=== PATIENT | male | born 1955 | race African-American/Black ===

== ENCOUNTER 2023-10-29 17:36 | Inpatient (IN) | payer MEDICARE, MEDICAID ==
[~2023-10-29] VITALS: Ht 177.8 cm; Wt 84.4 kg
[2023-10-29] MEDS ORDERED: FENTANYL 2500MCG/250ML PMX 250 ML IV ONE (18:15)
[2023-10-29 18:20] VITALS: PULSE 136; RESP 26
[2023-10-29] MEDS: SUCCINYLCHOLINE CHLORIDE 200MG/10ML IV ONE (18:20)
[2023-10-29] MEDS: ETOMIDATE 2MG/ML 10ML VIAL IV ONE (18:20)
[2023-10-29] MEDS ORDERED: ALBUTEROL (0.083%) 2.5MG/3ML NEB HHN ONE (18:30)
[2023-10-29] MEDS: METHYLPREDNISOLONE SOD SUCC 125MG/2ML (ACT-O-VIAL) IV ONE (18:30)
[2023-10-29] MEDS: VANCOMYCIN 1G PREMIX 200 ML IV ONE (18:30)
[2023-10-29] MEDS: PIPERACILLIN/TAZO 3.375G/50ML 50 ML IV ONE (18:30)
[2023-10-29] MEDS ORDERED: IPRATROPIUM/ALBUTEROL 0.5-3(2.5)MG/3ML NEB HHN ONE (18:30)
[2023-10-29] MEDS: PROPOFOL 10MG/ML 100ML 100 ML IV SCH (18:38)
[2023-10-29 19:19] LABS: BG BASE EXCESS -0.5 mmol/L (-2.0-2.0); BG CARBOXYHEMOGLOBIN 0.1 % (0.5-1.5); BG DEOXYHEMOGLOBIN 1.7 % (0.0-5.0); BG FRACTION INSPIRED OXYGEN 100; BG HCO3 ACT 26.3 mmol/L (22.0-26.0); BG METHEMOGLOBIN 0.5 % (0.0-1.5); BG OXYGEN SATURATION 98.3 % (92.0-98.5); BG OXYHEMOGLOBIN 97.7 % (94.0-97.0); BG PCO2 51.6 mmHg (35.0-45.0); BG PH 7.325 (7.350-7.450); BG PO2 123.1 mmHg (75.0-100.0); BG SAMPLE SITE RIGHT RADIAL; BG TOTAL HEMOGLOBIN 14.3 g/dL (12.0-18.0); BG VENT MODE VENT - AC
[2023-10-29 20:02] VITALS: PULSE 157; RESP 26
[2023-10-29] MEDS: SODIUM CHLORIDE 0.9% 1000ML BAG (SEPSIS BOLUS) IV ONE (20:29)
[2023-10-29] MEDS: MIDAZOLAM HCL 2 MG/2 ML VIAL IV ONE (21:12)
[2023-10-29 23:04] LABS: HEMATOCRIT. 36.6 % (42.0-52.0); MEAN CORPUSCULAR HEMOGLOBIN 30.8 pg (28.0-32.0); MEAN CORPUSCULAR HGB CONC 32.7 g/dL (31.0-37.0); MEAN CORPUSCULAR VOLUME 94.1 fL (80.0-94.0); MEAN PLATELET VOLUME 7.4 fl (7.4-10.4); PLATELET 181 x1000/uL (130-400); RED BLOOD CELL COUNT 3.89 mill/uL (4.7-6.1); RED CELL DISTRIBUTION WIDTH 13.3 % (11.6-14.6); WHITE BLOOD COUNT 7.7 x1000/uL (4.5-11.0)
[2023-10-29 23:05] LABS: DIFFERENTIAL COMMENT 1
[2023-10-29 23:12] LABS: INR 1.2
[2023-10-29] MEDS ORDERED: IPRATROPIUM/ALBUTEROL 0.5-3(2.5)MG/3ML NEB HHN NR (23:15)
[2023-10-29] MEDS ORDERED: ETOMIDATE 2MG/ML 10ML VIAL IV NR (23:15)
[2023-10-29] MEDS ORDERED: ALBUTEROL (0.083%) 2.5MG/3ML NEB HHN NR (23:15)
[2023-10-29] MEDS ORDERED: SUCCINYLCHOLINE CHLORIDE 200MG/10ML IV NR (23:15)
[2023-10-29] MEDS ORDERED: FENTANYL CITRATE/PF 2,500 MCG in SODIUM CHLORIDE 0.9% 200 ML IV ONE (23:15)
[2023-10-29 23:22] LABS: PLATELET ESTIMATE NORMAL
[2023-10-29 23:25] VITALS: PULSE 115; RESP 24
[2023-10-29 23:28] LABS: LACTIC ACID 2.3 mmol/L (0.4-2.0)
[2023-10-29] MEDS ORDERED: VANCOMYCIN 1G PREMIX 200 ML IV NR (23:30)
[2023-10-29 23:32] LABS: ALANINE AMINOTRANSFERASE 13 IU/L (10-49); ALBUMIN 3.5 g/dL (3.2-4.8); ASPARTATE AMINOTRANSFERASE 27 IU/L (<34); BILIRUBIN TOTAL 0.3 mg/dL (0.1-1.0); CALCIUM 8.2 mg/dL (8.7-10.4); CARBON DIOXIDE 29 mEq/L (21-32); CHLORIDE 107 mEq/L (98-107); GLUCOSE 106 mg/dL (70-105); POTASSIUM 3.4 mEq/L (3.5-5.1); PROTEIN TOTAL 7.1 g/dL (6.0-8.3); SODIUM 141 mEq/L (136-145); UREA NITROGEN BLOOD 31 mg/dL (9-23)
[2023-10-29 23:45] LABS: TROPONIN I HIGH SENSITIVITY 158 ng/L (3.0-53)
[2023-10-30] VITALS (73 sets, daily range): BP systolic 69–148; BP diastolic 50–87; PULSE 73–108; RESP 21–26; TEMP 98.8–100.4
[2023-10-30 00:40] LABS: HEPATITIS A AB IGM NEGATIVE (Negative); HEPATITIS B CORE AB IGM NEGATIVE (Negative); HEPATITIS B SURFACE ANTIGEN NEGATIVE (Negative); HEPATITIS C AB NON REACTIVE (Neg) (Negative)
[2023-10-30] MEDS ORDERED: GUAIFENESIN 200MG/10ML SUGAR FREE UDC PO PRN (01:30)
[2023-10-30] MEDS ORDERED: CLONIDINE 0.1MG TABLET PO PRN (01:30)
[2023-10-30] MEDS: SODIUM CHLORIDE 0.9% 1,000 ML IV SCH (01:30)
[2023-10-30] MEDS ORDERED: DOCUSATE SODIUM 100MG CAPSULE PO PRN (01:30)
[2023-10-30] MEDS ORDERED: ONDANSETRON HCL 4MG/2ML INJ IV PRN (01:30)
[2023-10-30] MEDS ORDERED: ACETAMINOPHEN 325MG TABLET PO PRN (01:30)
[2023-10-30] MEDS ORDERED: IPRATROPIUM/ALBUTEROL 0.5-3(2.5)MG/3ML NEB HHN PRN (01:30)
[2023-10-30] MEDS ORDERED: MAGNESIUM/ALUMINUM HYDROXIDE/SIMETHICONE 30ML UDC PO PRN (01:30)
[2023-10-30] MEDS: KCL 20MEQ/100ML PREMIX 100 ML IV NR (02:00)
[2023-10-30] MEDS: VANCOMYCIN 500MG PREMIX 100 ML IV NR (02:13)
[2023-10-30 02:42] LABS: IRON 18 ug/dL (65-175); PHOSPHORUS 1.4 mg/dL (2.5-4.9); TOTAL IRON BINDING CAPACITY 201 ug/dl (250-425)
[2023-10-30 02:46] LABS: FERRITIN 408 ng/mL (22-322); FOLIC ACID (FOLATE) SERUM 11.66 ng/mL (>5.38); VITAMIN B12 SERUM 603 pg/mL (211-911)
[2023-10-30] MEDS: MAGNESIUM 2 G PREMIX 50 ML IV NR (03:32)
[2023-10-30] MEDS: NOREPINEPHRINE 8MG/250ML PMX 250 ML IV PRN (03:46)
[2023-10-30] MEDS: MEROPENEM 1G/100ML 100 ML IV SCH ×2 (06:40→13:45)
[2023-10-30] MEDS: POTASSIUM PHOSPHATE 30 MMOL in SODIUM CHLORIDE 0.9% 500 ML IV NR (06:40)
[2023-10-30] MEDS: BLOOD SUGAR DIAGNOSTIC STRIP TEST SCH (07:03)
[2023-10-30 08:18] LABS: BG BASE EXCESS -2.3 mmol/L (-2.0-2.0); BG CARBOXYHEMOGLOBIN 0.1 % (0.5-1.5); BG DEOXYHEMOGLOBIN 0.4 % (0.0-5.0); BG FRACTION INSPIRED OXYGEN 100; BG HCO3 ACT 23.1 mmol/L (22.0-26.0); BG METHEMOGLOBIN 0.8 % (0.0-1.5); BG OXYGEN SATURATION 99.6 % (92.0-98.5); BG OXYHEMOGLOBIN 98.7 % (94.0-97.0); BG PCO2 42.1 mmHg (35.0-45.0); BG PH 7.358 (7.350-7.450); BG PO2 192.1 mmHg (75.0-100.0); BG SAMPLE SITE RIGHT RADIAL; BG TOTAL HEMOGLOBIN 13.2 g/dL (12.0-18.0); BG TOTAL RESPIRATORY RATE 24 b/min; BG VENT MODE VENT - AC
[2023-10-30] MEDS: PANTOPRAZOLE SODIUM 40 MG/VIAL IV SCH (09:16)
[2023-10-30] MEDS: ENOXAPARIN 40MG/0.4ML SYR SUBCUT SCH (09:17)
[2023-10-30] MEDS: LACTATED RINGERS 1,000 ML IV SCH (10:09)
[2023-10-30 12:15] LABS: HEMATOCRIT. 35.8 % (42.0-52.0); HEMOGLOBIN. 11.6 g/dL (14.0-18.0); MEAN CORPUSCULAR HEMOGLOBIN 30.3 pg (28.0-32.0); MEAN CORPUSCULAR HGB CONC 32.2 g/dL (31.0-37.0); MEAN CORPUSCULAR VOLUME 93.9 fL (80.0-94.0); MEAN PLATELET VOLUME 7.8 fl (7.4-10.4); PLATELET 215 x1000/uL (130-400); RED BLOOD CELL COUNT 3.82 mill/uL (4.7-6.1); RED CELL DISTRIBUTION WIDTH 13.4 % (11.6-14.6); WHITE BLOOD COUNT 24.8 x1000/uL (4.5-11.0)
[2023-10-30] MEDS: LACTATED RINGERS 1,000 ML IV ONE (12:17)
[2023-10-30 12:33] LABS: DIFFERENTIAL COMMENT 1
[2023-10-30] MEDS: IPRATROPIUM/ALBUTEROL 0.5-3(2.5)MG/3ML NEB HHN SCH (12:46)
[2023-10-30 12:55] LABS: CREATINE KINASE MB FRACTION 4.4 ng/mL (0.5-3.6)
[2023-10-30 12:57] LABS: CALCIUM 8.2 mg/dL (8.7-10.4); CARBON DIOXIDE 21 mEq/L (21-32); CHLORIDE 110 mEq/L (98-107); CREATININE 0.9 mg/dL (0.6-1.3); GLUCOSE 128 mg/dL (70-105); PHOSPHORUS 3.6 mg/dL (2.5-4.9); POTASSIUM 4.7 mEq/L (3.5-5.1); SODIUM 139 mEq/L (136-145); T4 FREE 0.86 ng/dL (0.89-1.76); THYROID STIMULATING HORMONE 0.33 uIU/mL (0.55-4.78); UREA NITROGEN BLOOD 29 mg/dL (9-23)
[2023-10-30 13:16] LABS: CLARITY URINE CLOUDY (CLEAR); COLOR URINE YELLOW (YELLOW); GLUCOSE URINE NEGATIVE (NEGATIVE); KETONES URINE NEGATIVE (NEGATIVE); LEUKOCYTE ESTERASE URINE TRACE (NEGATIVE); NITRITE URINE NEGATIVE (NEGATIVE); OCCULT BLOOD URINE 2+ (NEGATIVE); PROTEIN URINE NEGATIVE (NEGATIVE); SPECIFIC GRAVITY URINE 1.009 (1.005-1.030); UROBILINOGEN URINE 0.2 E.U./dL (0.2-1.0)
[2023-10-30 13:44] LABS: BACTERIA URINE TRACE; SQUAMOUS EPITHELIAL CELL URINE RARE /lpf (RARE/1+)
[2023-10-30] MEDS ORDERED: VANCOMYCIN 750MG PREMIX 150 ML IV SCH (14:00)
[2023-10-30 14:03] LABS: *AMPHETAMINES SCREEN URINE NEGATIVE (NEGATIVE); *BARBITURATES SCREEN URINE NEGATIVE (NEGATIVE); *BENZODIAZEPINES SCREEN URINE PRESUMPTIVE POSITIVE (NEGATIVE); *COCAINE SCREEN URINE NEGATIVE (NEGATIVE); CANNABINOID URINE SCREEN NEGATIVE (NEGATIVE); ECSTASY MDMA SCREEN URINE NEGATIVE (NEGATIVE); METHADONE URINE SCREEN Neg (NEGATIVE); OPIATES URINE SCREEN NEGATIVE (NEGATIVE); PHENCYCLIDINE URINE SCREEN NEGATIVE (NEGATIVE)
[2023-10-30 14:13] LABS: PLATELET ESTIMATE NORMAL
[2023-10-30] MEDS: LORAZEPAM 2MG/ML INJ IV NR (14:16)
[2023-10-30] MEDS ORDERED: IOHEXOL-350 100 ML BOTTLE ONE (15:12)
[2023-10-30] MEDS: VANCOMYCIN 1G PREMIX 200 ML IV SCH (16:40)
[2023-10-30] MEDS: METHYLPREDNISOLONE SOD SUCC 40MG/ML (ACT-O-VIAL) IV SCH (22:19)
[2023-10-30] MEDS: FENTANYL CITRATE/PF 2,500 MCG in SODIUM CHLORIDE 0.9% 200 ML IV PRN (22:37)
[2023-10-30] MEDS: ACETAMINOPHEN 325MG TABLET PO PRN (22:38)
[2023-10-31] VITALS (98 sets, daily range): BP systolic 74–156; BP diastolic 50–112; PULSE 74–108; RESP 15–29; TEMP 98.1–99.3; O2SAT 98
[2023-10-31 04:59] LABS: HEMATOCRIT. 33.5 % (42.0-52.0); HEMOGLOBIN. 11.3 g/dL (14.0-18.0); MEAN CORPUSCULAR HEMOGLOBIN 31.3 pg (28.0-32.0); MEAN CORPUSCULAR HGB CONC 33.7 g/dL (31.0-37.0); MEAN CORPUSCULAR VOLUME 92.8 fL (80.0-94.0); MEAN PLATELET VOLUME 7.9 fl (7.4-10.4); PLATELET 183 x1000/uL (130-400); RED BLOOD CELL COUNT 3.61 mill/uL (4.7-6.1); RED CELL DISTRIBUTION WIDTH 13.6 % (11.6-14.6); WHITE BLOOD COUNT 21.8 x1000/uL (4.5-11.0)
[2023-10-31 05:09] LABS: DIFFERENTIAL COMMENT 1
[2023-10-31 05:20] LABS: ALANINE AMINOTRANSFERASE 16 IU/L (10-49); ALBUMIN 3.3 g/dL (3.2-4.8); ASPARTATE AMINOTRANSFERASE 40 IU/L (<34); BILIRUBIN TOTAL 0.4 mg/dL (0.1-1.0); CALCIUM 8.1 mg/dL (8.7-10.4); CARBON DIOXIDE 26 mEq/L (21-32); CHLORIDE 109 mEq/L (98-107); CHOLESTEROL 156 mg/dL (<200); CREATININE 0.6 mg/dL (0.6-1.3); GLUCOSE 124 mg/dL (70-105); HDL CHOLESTEROL 35 mg/dL (>55); LDL CHOLESTEROL 92 mg/dL (5-100); POTASSIUM 4.5 mEq/L (3.5-5.1); PROTEIN TOTAL 6.3 g/dL (6.0-8.3); SODIUM 140 mEq/L (136-145); TRIGLYCERIDE 83 mg/dL (0-150); UREA NITROGEN BLOOD 18 mg/dL (9-23)
[2023-10-31 08:49] LABS: BG BASE EXCESS 2.4 mmol/L (-2.0-2.0); BG CARBOXYHEMOGLOBIN 0.3 % (0.5-1.5); BG DEOXYHEMOGLOBIN 1.2 % (0.0-5.0); BG FRACTION INSPIRED OXYGEN 50; BG HCO3 ACT 26.8 mmol/L (22.0-26.0); BG METHEMOGLOBIN 0.6 % (0.0-1.5); BG OXYGEN SATURATION 98.8 % (92.0-98.5); BG OXYHEMOGLOBIN 97.9 % (94.0-97.0); BG PCO2 40.7 mmHg (35.0-45.0); BG PH 7.436 (7.350-7.450); BG PO2 136.2 mmHg (75.0-100.0); BG SAMPLE SITE RIGHT RADIAL; BG TOTAL HEMOGLOBIN 12.1 g/dL (12.0-18.0); BG VENT MODE VENT - AC
[2023-10-31] MEDS: SODIUM CHLORIDE 0.9% 1,000 ML IV SCH (13:00)
[2023-10-31 13:15] LABS: PLATELET ESTIMATE NORMAL
[2023-10-31 16:29] LABS: BG BASE EXCESS 0.8 mmol/L (-2.0-2.0); BG CARBOXYHEMOGLOBIN 0.3 % (0.5-1.5); BG DEOXYHEMOGLOBIN 2.3 % (0.0-5.0); BG FRACTION INSPIRED OXYGEN 40; BG HCO3 ACT 26.1 mmol/L (22.0-26.0); BG METHEMOGLOBIN 0.4 % (0.0-1.5); BG OXYGEN SATURATION 97.7 % (92.0-98.5); BG PCO2 44.4 mmHg (35.0-45.0); BG PH 7.387 (7.350-7.450); BG PO2 98.6 mmHg (75.0-100.0); BG SAMPLE SITE RIGHT RADIAL; BG TOTAL HEMOGLOBIN 13.1 g/dL (12.0-18.0); BG VENT MODE VENT - CPAP
[2023-11-01] VITALS (48 sets, daily range): BP systolic 86–130; BP diastolic 45–99; PULSE 64–109; RESP 14–27; TEMP 98–98.4; O2SAT 90–98
[2023-11-01 04:45] LABS: HEMATOCRIT. 29.5 % (42.0-52.0); HEMOGLOBIN. 9.8 g/dL (14.0-18.0); MEAN CORPUSCULAR HEMOGLOBIN 30.6 pg (28.0-32.0); MEAN CORPUSCULAR HGB CONC 33.1 g/dL (31.0-37.0); MEAN CORPUSCULAR VOLUME 92.7 fL (80.0-94.0); PLATELET 148 x1000/uL (130-400); RED BLOOD CELL COUNT 3.19 mill/uL (4.7-6.1); RED CELL DISTRIBUTION WIDTH 13.6 % (11.6-14.6)
[2023-11-01 05:01] LABS: CALCIUM 8.3 mg/dL (8.7-10.4); CARBON DIOXIDE 27 mEq/L (21-32); CHLORIDE 108 mEq/L (98-107); CREATININE 0.5 mg/dL (0.6-1.3); GLUCOSE 108 mg/dL (70-105); SODIUM 139 mEq/L (136-145); UREA NITROGEN BLOOD 17 mg/dL (9-23); VANCOMYCIN TROUGH 15.3 ug/mL (5.0-10.0)
[2023-11-01 05:35] LABS: DIFFERENTIAL COMMENT 1
[2023-11-01 08:15] LABS: PLATELET ESTIMATE NORMAL
[2023-11-02] VITALS (8 sets, daily range): BP systolic 120–150; BP diastolic 74–91; PULSE 83–100; RESP 18–20; TEMP 97.4–99.1; O2SAT 94–98
[2023-11-02] MEDS: CEFTRIAXONE 1GM/50ML 50ML IV SCH (16:45)
[2023-11-02 20:59] LABS: HEMATOCRIT. 35.9 % (42.0-52.0); HEMOGLOBIN. 11.8 g/dL (14.0-18.0); MEAN CORPUSCULAR HEMOGLOBIN 30.1 pg (28.0-32.0); MEAN CORPUSCULAR HGB CONC 32.8 g/dL (31.0-37.0); MEAN CORPUSCULAR VOLUME 91.9 fL (80.0-94.0); MEAN PLATELET VOLUME 8.6 fl (7.4-10.4); PLATELET 173 x1000/uL (130-400); RED BLOOD CELL COUNT 3.91 mill/uL (4.7-6.1); RED CELL DISTRIBUTION WIDTH 13.8 % (11.6-14.6)
[2023-11-02 21:00] LABS: DIFFERENTIAL COMMENT 1
[2023-11-02 21:11] LABS: CALCIUM 8.4 mg/dL (8.7-10.4); CARBON DIOXIDE 27 mEq/L (21-32); CHLORIDE 107 mEq/L (98-107); CREATININE 0.6 mg/dL (0.6-1.3); GLUCOSE 132 mg/dL (70-105); PHOSPHORUS 1.5 mg/dL (2.5-4.9); POTASSIUM 4.1 mEq/L (3.5-5.1); SODIUM 140 mEq/L (136-145); UREA NITROGEN BLOOD 22 mg/dL (9-23)
[2023-11-02 21:26] LABS: PLATELET ESTIMATE NORMAL
[2023-11-03 04:00] VITALS: BP 148/93; PULSE 91; RESP 18; TEMP 98.8
[2023-11-03] MEDS: DEXTROSE 50% WATER 50ML SYRINGE IV PRN (05:21)
[2023-11-03 08:00] VITALS: BP 137/91; PULSE 94; RESP 20; TEMP 97.5
[2023-11-03 10:59] LABS: HEMATOCRIT. 38.2 % (42.0-52.0); HEMOGLOBIN. 12.2 g/dL (14.0-18.0); MEAN CORPUSCULAR HEMOGLOBIN 30.5 pg (28.0-32.0); MEAN CORPUSCULAR VOLUME 95.2 fL (80.0-94.0); MEAN PLATELET VOLUME 8.6 fl (7.4-10.4); PLATELET 175 x1000/uL (130-400); RED BLOOD CELL COUNT 4.01 mill/uL (4.7-6.1); RED CELL DISTRIBUTION WIDTH 13.8 % (11.6-14.6); WHITE BLOOD COUNT 12.5 x1000/uL (4.5-11.0)
[2023-11-03 11:06] LABS: DIFFERENTIAL COMMENT 1
[2023-11-03 12:00] VITALS: BP 129/87; PULSE 91; RESP 18; TEMP 97.4
[2023-11-03 13:33] LABS: CALCIUM 8.6 mg/dL (8.7-10.4); CARBON DIOXIDE 28 mEq/L (21-32); CHLORIDE 106 mEq/L (98-107); CREATININE 0.5 mg/dL (0.6-1.3); GLUCOSE 89 mg/dL (70-105); POTASSIUM 3.6 mEq/L (3.5-5.1); SODIUM 141 mEq/L (136-145); UREA NITROGEN BLOOD 18 mg/dL (9-23)
[2023-11-03 15:20] VITALS: BP 129/87; PULSE 91; TEMP 97.4; O2SAT 98
[2023-11-03 16:00] VITALS: BP 130/85; PULSE 96; RESP 20; TEMP 98.6
[2023-11-03] MEDS ORDERED: PREDNISONE 20MG TABLET PO SCH (18:10)
[2023-11-03 21:08] LABS: PLATELET ESTIMATE NORMAL
[2023-11-03 21:09] LABS: ANISOCYTOSIS 1+
== END 2023-11-03 18:00 | DRG 871 ==
LOC: ER 17:36 → MICUSO 22:05 → EDBEDREQ 22:18 → MICUSO 10-30 05:44 → 7WST 11-01 14:23
PROVIDERS: ADMIT Internal Medicine; ATTEND Internal Medicine
PROC: 5A1945Z Respiratory Ventilation, 24-96 Consecutive Hours (ICD-10-PCS; principal; 2023-10-29)
PROC: 0BH17EZ Insertion of Endotracheal Airway into Trachea, Via Natural or Artificial Opening (ICD-10-PCS; 2023-10-29)
DX: A41.9 Sepsis, unspecified organism (principal); G92.8 Other toxic encephalopathy; R65.21 Severe sepsis with septic shock; I21.A1 Myocardial infarction type 2; J96.01 Acute respiratory failure with hypoxia; J96.02 Acute respiratory failure with hypercapnia; J15.69 Pneumonia due to other Gram-negative bacteria; J44.0 Chronic obstructive pulmonary disease with (acute) lower respiratory infection; Z20.822 Contact with and (suspected) exposure to COVID-19; D64.9 Anemia, unspecified; R13.10 Dysphagia, unspecified; K21.9 Gastro-esophageal reflux disease without esophagitis; G89.4 Chronic pain syndrome; Z86.61 Personal history of infections of the central nervous system; Z87.01 Personal history of pneumonia (recurrent); Z79.899 Other long term (current) drug therapy
CPT/HCPCS: 31500; 36415; 36600; 71045; 71275; 80048; 80053; 80061; 80202; 80305; 81003; 82375; 82550; 82553; 82607; 82728; 82746; 82805; 82962; 83036; 83540; 83550; 83605; 83735; 84100; 84145; 84439; 84443; 84484; 85025; 86705; 86709; 87070; 87077; 87186; 87340; 87426; 87804; 93005; 93306; 93970; 94002; 94003; 94640; 99285; C9113; J0696; J1650; J2060; J2185; J2250; J2543; J2704; J2920; J2930; J3010; J3370; J3475; J3480; J3490; J7030; J7040; J7050; J7120; Q9967

== ENCOUNTER 2023-11-05 21:55 | Emergency (ER) | payer MEDICARE, MEDICAID ==
[~2023-11-05] VITALS: Ht 177.8 cm; Wt 69.0 kg
[2023-11-05 22:13] VITALS: O2SAT 98
[2023-11-06 06:08] VITALS: BP 112/64; PULSE 69; RESP 18; TEMP 98.1
== END 2023-11-06 06:58 ==
LOC: ER 21:55
DX: T82.42XA Displacement of vascular dialysis catheter, initial encounter (principal); G82.50 Quadriplegia, unspecified; J44.9 Chronic obstructive pulmonary disease, unspecified; K21.9 Gastro-esophageal reflux disease without esophagitis; Z87.01 Personal history of pneumonia (recurrent); X58.XXXA Exposure to other specified factors, initial encounter
CPT/HCPCS: 70490; 99285

== ENCOUNTER 2024-02-21 08:37 | Inpatient (IN) | payer MEDICARE, MEDICAID ==
[2024-02-21] VITALS (7 sets, daily range): BP systolic 93–133; BP diastolic 68–97; PULSE 64–99; RESP 17–20; TEMP 98–98.5
[~2024-02-21] VITALS: Ht 167.6 cm; Wt 83.5 kg
[2024-02-21] MEDS ORDERED: PANTOPRAZOLE 80 MG in SODIUM CHLORIDE 0.9% 100 ML IV SCH (09:00)
[2024-02-21] MEDS: METOCLOPRAMIDE HCL 10MG/2ML VIAL IV ONE (09:07)
[2024-02-21] MEDS: PANTOPRAZOLE SODIUM 40 MG/VIAL IV ONE (09:07)
[2024-02-21 09:17] LABS: BASOPHILS % 1.2 % (0.0-2.0); EOSINOPHILS % 3.1 % (0.0-5.0); HEMATOCRIT. 41.1 % (42.0-52.0); HEMOGLOBIN. 13.4 g/dL (14.0-18.0); LYMPHOCYTES % 29.1 % (20.0-50.0); MEAN CORPUSCULAR HEMOGLOBIN 30.6 pg (28.0-32.0); MEAN CORPUSCULAR HGB CONC 32.6 g/dL (31.0-37.0); MEAN CORPUSCULAR VOLUME 93.9 fL (80.0-94.0); MONOCYTES % 10.6 % (2.0-8.0); PLATELET 306 x1000/uL (130-400); RED BLOOD CELL COUNT 4.37 mill/uL (4.7-6.1); RED CELL DISTRIBUTION WIDTH 13.9 % (11.6-14.6); WHITE BLOOD COUNT 3.4 x1000/uL (4.5-11.0)
[2024-02-21 09:23] LABS: CHLORIDE 102 mEq/L (98-107); POTASSIUM 3.8 mEq/L (3.5-5.1); SODIUM 136 mEq/L (136-145)
[2024-02-21 09:24] LABS: CARBON DIOXIDE 28 mEq/L (21-32)
[2024-02-21 09:25] LABS: CALCIUM 9.7 mg/dL (8.7-10.4); INR 1.2
[2024-02-21 09:29] LABS: CREATININE 0.5 mg/dL (0.6-1.3); GLUCOSE 83 mg/dL (70-105)
[2024-02-21 09:30] LABS: UREA NITROGEN BLOOD 13 mg/dL (9-23)
[2024-02-21 09:31] LABS: ALANINE AMINOTRANSFERASE 13 IU/L (10-49); ALBUMIN 4.1 g/dL (3.2-4.8); ASPARTATE AMINOTRANSFERASE 17 IU/L (<34)
[2024-02-21 09:32] LABS: BILIRUBIN DIRECT 0.1 mg/dL (<=3.0); BILIRUBIN TOTAL 0.4 mg/dL (0.1-1.0); PROTEIN TOTAL 7.2 g/dL (6.0-8.3)
[2024-02-21] MEDS: PANTOPRAZOLE 80 MG in SODIUM CHLORIDE 0.9% 100 ML IV SCH (10:05)
[2024-02-21] MEDS ORDERED: ONDANSETRON HCL 4MG/2ML INJ IV PRN (13:00)
[2024-02-21] MEDS: DEXT 5%/0.9% NACL 1,000 ML IV SCH (16:00)
[2024-02-21 17:15] LABS: HEMATOCRIT 46.8 % (42.0-52.0); HEMOGLOBIN 15.6 g/dL (14.0-18.0)
[2024-02-21] MEDS: PANTOPRAZOLE SODIUM 40 MG/VIAL IV SCH (20:43)
[2024-02-22] VITALS (12 sets, daily range): BP systolic 88–137; BP diastolic 71–111; PULSE 70–93; RESP 15–20; TEMP 97.3–98.6
[2024-02-22 03:43] LABS: HEMATOCRIT. 40.6 % (42.0-52.0); HEMOGLOBIN. 13.5 g/dL (14.0-18.0); LYMPHOCYTES % 20.5 % (20.0-50.0); MEAN CORPUSCULAR HEMOGLOBIN 30.6 pg (28.0-32.0); MEAN CORPUSCULAR HGB CONC 33.2 g/dL (31.0-37.0); MEAN CORPUSCULAR VOLUME 92.2 fL (80.0-94.0); MONOCYTES % 10.7 % (2.0-8.0); NEUTROPHILS % 65.8 % (40.0-76.0); PLATELET 303 x1000/uL (130-400); RED CELL DISTRIBUTION WIDTH 13.5 % (11.6-14.6); WHITE BLOOD COUNT 3.6 x1000/uL (4.5-11.0)
[2024-02-22 03:48] LABS: CARBON DIOXIDE 27 mEq/L (21-32); CHLORIDE 102 mEq/L (98-107); POTASSIUM 3.5 mEq/L (3.5-5.1); SODIUM 137 mEq/L (136-145)
[2024-02-22 03:49] LABS: CALCIUM 9.3 mg/dL (8.7-10.4)
[2024-02-22 03:54] LABS: CREATININE 0.5 mg/dL (0.6-1.3); GLUCOSE 93 mg/dL (70-105); UREA NITROGEN BLOOD 13 mg/dL (9-23)
[2024-02-22 03:55] LABS: INR 1.1; PROTHROMBIN TIME 12.4 sec (9.6-11.0)
[2024-02-22] MEDS ORDERED: ONDANSETRON HCL 4MG/2ML INJ IV PRN (12:15)
[2024-02-22] MEDS ORDERED: PROPOFOL 200MG/20ML VIAL IV ONE (12:36)
[2024-02-22] MEDS: ENOXAPARIN 80MG/0.8ML SYR SUBCUT SCH (16:00)
[2024-02-22] MEDS: ACETAMINOPHEN 325MG TABLET PO PRN (18:25)
[2024-02-23] VITALS (14 sets, daily range): BP systolic 101–158; BP diastolic 75–118; PULSE 66–95; RESP 17–22; TEMP 97–98; O2SAT 100
[2024-02-23 11:01] LABS: BASOPHILS % 0.9 % (0.0-2.0); EOSINOPHILS % 1.8 % (0.0-5.0); HEMATOCRIT. 38.1 % (42.0-52.0); HEMOGLOBIN. 12.7 g/dL (14.0-18.0); LYMPHOCYTES % 20.6 % (20.0-50.0); MEAN CORPUSCULAR HEMOGLOBIN 30.6 pg (28.0-32.0); MEAN CORPUSCULAR HGB CONC 33.3 g/dL (31.0-37.0); MEAN CORPUSCULAR VOLUME 91.7 fL (80.0-94.0); MONOCYTES % 11.7 % (2.0-8.0); PLATELET 294 x1000/uL (130-400); RED BLOOD CELL COUNT 4.16 mill/uL (4.7-6.1); RED CELL DISTRIBUTION WIDTH 13.7 % (11.6-14.6); WHITE BLOOD COUNT 3.8 x1000/uL (4.5-11.0)
[2024-02-23 11:27] LABS: CARBON DIOXIDE 27 mEq/L (21-32); CHLORIDE 104 mEq/L (98-107); POTASSIUM 3.5 mEq/L (3.5-5.1); SODIUM 136 mEq/L (136-145)
[2024-02-23 11:33] LABS: CREATININE 0.5 mg/dL (0.6-1.3)
[2024-02-23 11:34] LABS: GLUCOSE 117 mg/dL (70-105); UREA NITROGEN BLOOD 9 mg/dL (9-23)
== END 2024-02-23 19:08 | DRG 378 ==
LOC: ER 08:37 → 5EST 10:06 → EDBEDREQ 10:18
PROVIDERS: ADMIT Internal Medicine; ATTEND Internal Medicine
PROC: 0DJ68ZZ Inspection of Stomach, Via Natural or Artificial Opening Endoscopic (ICD-10-PCS; principal; 2024-02-22)
DX: K29.71 Gastritis, unspecified, with bleeding (principal); J96.10 Chronic respiratory failure, unspecified whether with hypoxia or hypercapnia; J44.9 Chronic obstructive pulmonary disease, unspecified; D72.819 Decreased white blood cell count, unspecified; K21.9 Gastro-esophageal reflux disease without esophagitis; K44.9 Diaphragmatic hernia without obstruction or gangrene; Z79.01 Long term (current) use of anticoagulants; Z87.01 Personal history of pneumonia (recurrent); Z99.81 Dependence on supplemental oxygen; Z86.711 Personal history of pulmonary embolism; Z79.899 Other long term (current) drug therapy
CPT/HCPCS: 36415; 80048; 80076; 85014; 85018; 85025; 85044; 86850; 86900; 99291; J1650; J2470; J2704; J2765; J7042; J7050